=== PATIENT | male | born 1965 | race Caucasian/White ===

== ENCOUNTER 2016-10-02 07:21 | Day surgery (SDC) | payer BC ==
[~2016-10-02] VITALS: Ht 185.4 cm; Wt 97.5 kg
[2016-10-02 08:32] VITALS: O2SAT 98
[2016-10-02] MEDS ORDERED: LR 1,000 ML IV SCH (10:53)
[2016-10-02] MEDS ORDERED: MEPERIDINE HCL/PF 25 MG/ML DISP.SYRIN IVP PRN (11:00)
[2016-10-02] MEDS ORDERED: HYDROmorphone 2 MG/ML VIAL IVP PRN ×2 (11:00)
[2016-10-02] MEDS ORDERED: HYDROmorphone 1 MG INJ. 1 MG/ML AMPUL IVP PRN (11:00)
[2016-10-02] MEDS: DILTIAZEM HCL 25 MG/5 ML VIAL IVP PRN ×2 (13:24→13:41)
[2016-10-02] MEDS ORDERED: NS IRRIG SOLN 1000 ML IR ONE (14:00)
[2016-10-02] MEDS ORDERED: PROPOFOL 200MG/ 20ML VIAL (DIPRIVAN) IV ONE (14:00)
[2016-10-02] MEDS ORDERED: FAMOTIDINE PF 20 MG/2 ML VIAL ONE (14:00)
[2016-10-02] MEDS ORDERED: LR 1,000 ML IV.SOLN IV ONE (14:00)
[2016-10-02] MEDS ORDERED: fentaNYL CITRATE 250 MCG/5 ML AMP ONE (14:00)
[2016-10-02] MEDS ORDERED: DEXAMETHASONE SOD PHOSPHATE 4 MG/ML VIAL ONE (14:00)
[2016-10-02] MEDS ORDERED: ONDANSETRON HCL 4 MG/2 ML VIAL ONE (14:00)
[2016-10-02] MEDS ORDERED: WATER FOR IRRIGATION,STERILE 1,000 ML IRRIG.SOLN IR ONE (14:00)
[2016-10-02] MEDS ORDERED: METOCLOPRAMIDE HCL 10 MG/2 ML VIAL ONE (14:00)
[2016-10-02] MEDS ORDERED: LIDOCAINE/EPI 1% 1:100000 20 ML VIAL INJ ONE (14:00)
[2016-10-02] MEDS ORDERED: KETOROLAC TROMETHAMINE 30 MG VIAL ONE (14:00)
[2016-10-02] MEDS ORDERED: OXYMETAZOLINE HCL 0.05% NASAL SPRAY NS ONE (14:00)
[2016-10-02] MEDS ORDERED: EPINEPHrine 1 MG/ML AMP ONE (14:00)
[2016-10-02] MEDS ORDERED: SEVOFLURANE 15 MIN GAS INH ONE (14:00)
[2016-10-02] MEDS ORDERED: ROCURONIUM BROMIDE 10 MG/ML (ZEMURON) ONE (14:00)
[2016-10-02] MEDS ORDERED: MIDAZOLAM HCL 5 MG/5 ML VIAL ONE (14:00)
[2016-10-02] MEDS ORDERED: HYDROcodone/ACETAMIN 5-325 MG TAB (NORCO/ VICODIN) ONE (14:59)
[2016-10-02 15:02] VITALS: BP 123/72; PULSE 98; RESP 16
== END 2016-10-02 15:40 | disposition home or self-care (01) ==
LOC: SDS 07:21 → SMU 07:23 → SDS 15:40
PROVIDERS: ATTEND Otolaryngology
DX: J34.2 Deviated nasal septum (principal); J32.8 Other chronic sinusitis; J34.89 Other specified disorders of nose and nasal sinuses; I10 Essential (primary) hypertension
CPT/HCPCS: 30140; 30520; 31255; 31267; 31296; 88305; 88311; A4649; C1726; C2615; J0171; J1100; J1885; J2250; J2405; J2704; J2765; J3010; J3490; J7120